=== PATIENT | female | born 1950 ===

== ENCOUNTER 2016-08-27 06:41 | Day surgery (SDC) | payer MEDICARE ==
[2016-08-20 07:17] VITALS: BMI 26.4
[2016-08-27 07:10] LABS: ADD MANUAL DIFF? NO
[2016-08-27 07:22] LABS: BLOOD UREA NITROGEN 11 mg/dL (7-21); CALCIUM 9.8 mg/dL (8.4-10.5); CARBON DIOXIDE 29 mmol/L (21-33); CHLORIDE 101 mmol/L (95-110); CHOLESTEROL 160 mg/dL (130-200); GFR AFRICAN-AMERICAN > 60; GLUCOSE,RANDOM 95 mg/dL (70-110); POTASSIUM 4.3 mmol/L (3.6-5.0); SODIUM 141 mmol/L (132-148)
[2016-08-27 07:27] LABS: BASO # 0.05 K/mm3 (0.0-2.0); BASO % 0.7 % (0.0-3.0); EOS # 0.2 (0.0-0.7); EOS % 2.2 % (1.5-5.0); GRAN # 4.02 (1.4-6.5); GRAN % 60.2 % (50.0-68.0); HEMATOCRIT 38.2 % (36.0-48.0); LYMPH # 2.2 (1.2-3.4); LYMPH % 32.6 % (22.0-35.0); MEAN CELL VOLUME 85.8 fL (80.0-105.0); MEAN CORPUSCULAR HGB CONC 31.4 g/dl (31.0-37.0); MEAN PLATELET VOLUME 9.4 fl (7.0-11.0); MONO # 0.3 (0.1-0.6); MONO % 4.3 % (1.0-6.0); PLATELET COUNT 296 10^3/uL (120.0-450.0); RED CELL DISTRIBUTION WIDTH 14.4 % (11.5-14.5); WHITE BLOOD COUNT 6.7 10^3/ul (4.5-11.0)
[2016-08-27 07:32] LABS: INR 0.97 (0.93-1.08); PARTIAL THROMBOPLASTIN TIME 25.9 Seconds (23.7-30.8)
--- NOTE | 2016-08-27 08:24 | HP ---
REASON FOR ADMISSION: Left heart catheterization, possible angioplasty, because of abnormal stress t est. BRIEF CLINICAL HISTORY: A 65-year-old female with past medical history significant for CVA, hyperten edward, hyperlipidemia, asthma, COPD, history of brain surgery in the past, admitted electively for lef t heart catheterization, possible angioplasty because of abnormal stress test. The patient complains of dyspnea on exertion, chest pain on exertion. The patient underwent a stress test by Dr. Demetrice navarrete nd it was abnormal. The patient is scheduled for elective cardiac cath, possible angioplasty. PAST MEDICAL HISTORY: Significant for hypertension, hyperlipidemia, CVA, asthma. PAST SURGICAL HISTORY: Significant for brain surgery. SOCIAL HISTORY: Denies ____ any history of alcohol abuse. CURRENT MEDICATIONS: The patient is taking calcium carbonate 500, Xanax 0.25 mg q. 6 p.r.n., enalap ril 5 mg daily, aspirin 81 mg daily, Naprosyn 500 mg daily, Namenda 10 mg daily, ____ Zetia 10 mg myrtle ly, ____ statin 20 mg daily. PREVIOUS CARDIAC WORKUP FOLLOWS: The patient had a stress test 08/06/2016 that showed probable ab normal stress test, reversible ischemia, defect suspicious ischemia, basal inferior defect, ejection fraction 71% dated 08/06/2016. The patient had echocardiography done dated 07/23/2016, ejection frac tion 65% - 70%, trace aortic regurgitation, trace to mild mitral regurgitation, mild tricuspid regurg itation, mild pulmonary insufficiency, right ventricular systolic pressure 27.3. REVIEW OF SYSTEMS: As per HPI. PHYSICAL EXAMINATION: VITAL SIGNS: Temperature afebrile, heart rate 60, blood pressure 120/80, height 5 feet, weight is 13 5, body mass index 26.4 kg/m2, HEENT: PERRLA. Extraocular muscles intact. NECK: Supple. No carotid bruits. No thyromegaly. CHEST: Clear to auscultation. HEART: S1, S2 regular. ABDOMEN: Soft. EXTREMITIES: Clubbing and cyanosis negative. BLOOD WORKUP: Pending. IMPRESSION: Abnormal stress test, hypertension, hyperlipidemia, ____ defect suspicious ____. RECOMMENDATION: Cardiac catheterization, ____ aspirin and Plavix. Follow the blood workup. We will follow with you. Thank you, ____, for providing the opportunity in taking care of the patient. Will update you af ter the cardiac catheterization. Jamaica Krause MD cc: [id number] TT: 08/26/2016 18:35:39 jn
[2016-08-27] MEDS ORDERED: Lidocaine 2% Inj (20ml) ONE (09:00)
[2016-08-27] MEDS ORDERED: DiphenhydrAMINE 50 mg/ml Inj ONE (09:01)
[2016-08-27] MEDS ORDERED: Famotidine 20mg/50ml 20 MG/50 ML BAG IVPB ONE (09:01)
[2016-08-27] MEDS ORDERED: Iodixanol 320 mg/ml 150 ml Bottle IV ONE (09:21)
[2016-08-27] MEDS ORDERED: Midazolam 2 MG/2 ML VIAL ONE (09:21)
[2016-08-27] MEDS ORDERED: Sodium Chloride 0.9% 1,000 ML IV SCH (10:15)
[2016-08-27 10:30] VITALS: TEMP 98.2
[2016-08-27 12:08] VITALS: RESP 20
[2016-08-27 13:51] VITALS: BP 114/77; PULSE 93; O2SAT 98
--- NOTE | 2016-08-27 17:31 | CARD ---
APPROVED REPORT Procedure(s) performed: Left Heart Catheterization HISTORY The patient is a 65 year-old female with a history of : most recent EF: 73%. (EF Method: RADIONUCLIDE), previous CVA remote >= 2 weeks, chronic lung disease, previous diagnostic cath, hypertension , dyslipidemia , cerebrovascular disease , Abnormal stress test, infero-lateral Ischemia.. INDICATION The indication(s) include : positive stress test, dyspnea. CASE TECHNIQUE The patient was brought electively to the Cardiac Catheterization Laboratory in a fasting state and was prepped and draped in a sterile manner. The right femoral groin was infiltrated with 2% Lidocaine subcutaneous anesthesia. A 5 Fr x 11 cm Arline sheath was inserted into the right femoral artery without difficulty. Coronary angiography was performed using coronary diagnostic catheters. The left coronary system was accessed and visualized with a Diagnostic ,6 Fr JL 4 catheter. The right coronary system was accessed and visualized with a Diagnostic ,6 Fr JR 4 catheter. The left ventricle was accessed and visualized with a 6 Fr Pigtail catheter. Left ventriculogram was performed in [place] projection. Pre-demployment femoral angiogram was performed . The patient tolerated the procedure well and there were no complications associated with the procedure. Vessel Analysis The patient's coronary anatomy is left dominant. The left main coronary artery is a large size vessel with diffuse calcification noted throughout this vessel and without significant stenosis. The left main bifurcates to the left anterior descending and circumflex. The left anterior descending artery is a medium size vessel with diffuse calcification noted throughout this vessel and without significant stenosis. There is a 40-50% stenosis in the mid segment. Very Distal LAD Diffusely diseased like thread 555 stenosis, but non focal. The first diagonal branch is a small size vessel with intimal irregularities and without significant stenosis. The second diagonal branch is a medium size vessel with diffuse calcification noted throughout this vessel and without significant stenosis. The circumflex artery is a medium size vessel with diffuse calcification noted throughout this vessel and without significant stenosis. The first obtuse marginal branch is a medium size vessel with diffuse calcification noted throughout this vessel and without significant stenosis. The second obtuse marginal branch is a medium size vessel with diffuse calcification noted throughout this vessel and without significant stenosis. The left posterior descending artery is a medium size vessel with diffuse calcification noted throughout this vessel and without significant stenosis. The right coronary artery is a small size vessel with diffuse calcification noted throughout this vessel and without significant stenosis. Left Ventricle The left ventricle is normal in size with normal contractility. There was no cardiomyopathy. The left ventricular ejection fraction is estimated to be 65%. The left ventricular end diastolic pressure is 12-14 mmHg. There was no gradient across the aortic valve upon pullback. Conclusion Non Obstructive CAD, Mid LAD 40-50% and very Distal LAD 55% diffusely diseased non Focal. Preserved LV Fx.EGF-65%, EDP-12-14 mmof hg Recommendations Aggressive Medical TherapyCardiac Risk Reduction Program CC; Drs. Yeh/ Demetrice.
== END 2016-08-27 15:15 | disposition home or self-care (01) ==
LOC: CATH 06:41
PROVIDERS: ATTEND Internal Medicine Cardiovascular Disease
DX: I25.10 Atherosclerotic heart disease of native coronary artery without angina pectoris (principal); R94.39 Abnormal result of other cardiovascular function study; E78.5 Hyperlipidemia, unspecified; I10 Essential (primary) hypertension; J44.9 Chronic obstructive pulmonary disease, unspecified; Z79.82 Long term (current) use of aspirin; Z86.73 Personal history of transient ischemic attack (TIA), and cerebral infarction without residual deficits; I08.8 Other rheumatic multiple valve diseases
CPT/HCPCS: 36415; 80048; 80061; 85025; 85610; 85730; 86850; 86900; 93458; 99152; C1713; C1760; C1769; J1200; J1644; J2250; J2930; J3010; J7040 ×2

== ENCOUNTER 2016-12-09 08:03 | Day surgery (SDC) | payer MEDICARE ==
[2016-08-20 07:17] VITALS: BMI 26.4
[2016-12-09] MEDS ORDERED: Propofol 10 mg/ml Inj (20 ML) ONE (09:41)
[2016-12-09] MEDS ORDERED: Sodium Chloride 0.9% 1,000 ML IV SCH (10:30)
[2016-12-09 11:10] VITALS: BP 117/65; PULSE 73; RESP 19; TEMP 97.6; O2SAT 100
== END 2016-12-09 11:50 | disposition home or self-care (01) ==
LOC: ENDO 08:03
PROVIDERS: ATTEND Specialist
DX: K57.30 Diverticulosis of large intestine without perforation or abscess without bleeding (principal); K64.8 Other hemorrhoids; M19.90 Unspecified osteoarthritis, unspecified site; I12.9 Hypertensive chronic kidney disease with stage 1 through stage 4 chronic kidney disease, or unspecified chronic kidney disease; N18.9 Chronic kidney disease, unspecified; I25.10 Atherosclerotic heart disease of native coronary artery without angina pectoris; J45.909 Unspecified asthma, uncomplicated; Z90.710 Acquired absence of both cervix and uterus
CPT/HCPCS: 45378; J2704; J7040

== ENCOUNTER 2018-04-27 09:30 | Outpatient (CLI) | payer MEDICARE | END 2018-04-27 09:31 | disposition home or self-care (01) | LOC: RAD 09:30 ==